=== PATIENT | female | born 1965 | race Caucasian/White ===

== ENCOUNTER 2020-05-03 16:20 | Inpatient (IN) ==
[2020-05-03] MEDS ORDERED: Morphine Sulfate 2 MG/ML SYRINGE IVP ONE (16:43)
[2020-05-03] MEDS ORDERED: Ondansetron 4 MG/2 ML VIAL IVP ONE (16:43)
[2020-05-03 17:18] LABS: Basophils % 0.5 %; Eosinophils # 0.1 K/mcL (0.0-0.6); Eosinophils % 1.6 %; Hematocrit 45.1 % (35.3-44.9); Hemoglobin 14.6 g/dL (11.5-15.4); Immature Granulocytes % 0.2 % (0-4); Lymphocytes # 2.3 K/mcL (0.6-4.6); Lymphocytes % 35.7 %; Mean Corpuscular HGB Conc 32.4 g/dL (31.6-35.5); Mean Corpuscular Hemoglobin 31.8 pg (28.0-33.3); Mean Corpuscular Volume 98.3 fL (83.0-100.0); Mean Platelet Volume 10.3 fL (9.4-12.4); Monocytes # 0.6 K/mcL (0.0-1.3); Neutrophils # 3.3 K/mcL (1.6-8.9); Platelet Count 227 K/mcL (140-400); Red Blood Count 4.59 M/mcL (3.82-4.97); Red Cell Distribution Width 12.4 % (11.5-14.5); White Blood Count 6.4 K/mcL (4.3-11.1)
[2020-05-03 17:29] LABS: Alanine Aminotransferase 16 Units/L (7-52); Albumin 3.9 g/dL (3.5-5.7); Albumin/Globulin Ratio 1.3 (1.1-2.2); Alkaline Phosphatase 79 Units/L (34-104); Aspartate Amino Transferase 17 Units/L (13-39); BUN/Creatinine Ratio 10 (6-26); Bilirubin,Direct 0.1 mg/dL (0.0-0.2); Bilirubin,Indirect 0.2 mg/dL (0.0-1.0); Bilirubin,Total 0.3 mg/dL (0.3-1.0); Blood Urea Nitrogen 11 mg/dL (6-20); Calcium 9.4 mg/dL (8.6-10.3); Carbon Dioxide 28 mEq/L (23-29); Chloride 104 mEq/L (98-107); Globulin 3.1 g/dL (2.4-3.5); Glucose 99 mg/dL (70-105); Lipase 20 Units/L (11-82); Osmolality,Calculated 287 (280-300); Potassium 3.9 mEq/L (3.5-5.1); Sodium 139 mEq/L (136-145); eGFR For African Americans > 60 (> 60); eGFR For Non-African Americans 54 (> 60)
[2020-05-03 18:20] LABS: Bilirubin,Urine Negative (Negative); Blood,Urine Negative (Negative); Clarity,Urine Clear (Clear); Color,Urine Colorless (Yellow); Glucose,Urine (UA) Normal (Normal); Ketones,Urine Negative (Negative); Leukocyte Esterase,Urine Negative (Negative); Nitrite,Urine Negative (Negative); PH,Urine 6.5 pH Units (5.0-8.0); Protein,Urine Negative (Neg-Trace); Specific Gravity,Urine 1.012 (1.010-1.025); Urobilinogen,Urine Normal (Normal)
[2020-05-03] MEDS ORDERED: 0.9 % Sodium Chloride 1,000 ML IVC ONE (18:30)
[2020-05-03] MEDS ORDERED: Piperacillin/Tazobactam 3.375 GM in 0.9 % Sodium Chloride Mini Bag 100 ML IVPB ONE (18:32)
[2020-05-03] MEDS ORDERED: *HR* HYDROmorphone (PF) 1 MG/ML SYRINGE IVP ONE (18:38)
[2020-05-03] MEDS ORDERED: Acetaminophen 325 MG TABLET PO PRN (20:23)
[2020-05-03] MEDS ORDERED: Naloxone 0.4 MG/ML INJ IVP PRN (20:23)
[2020-05-03] MEDS: 0.9 % Sodium Chloride 1,000 ML IVC SCH (23:52)
[2020-05-04] MEDS: Piperacillin/Tazobactam 3.375 GM in 0.9 % Sodium Chloride Mini Bag 100 ML IVPB SCH ×3 (00:19→17:44)
[2020-05-04 00:57] LABS: Basophils # 0.1 K/mcL (0.0-0.2); Basophils % 0.9 %; Eosinophils # 0.2 K/mcL (0.0-0.6); Eosinophils % 2.9 %; Hematocrit 43.4 % (35.3-44.9); Hemoglobin 14.5 g/dL (11.5-15.4); Immature Granulocytes % 0.1 % (0-4); Lymphocytes % 52.1 %; Mean Corpuscular HGB Conc 33.4 g/dL (31.6-35.5); Mean Corpuscular Hemoglobin 32.7 pg (28.0-33.3); Mean Corpuscular Volume 97.7 fL (83.0-100.0); Mean Platelet Volume 10.3 fL (9.4-12.4); Monocytes # 0.7 K/mcL (0.0-1.3); Monocytes % 8.7 %; Neutrophils # 2.7 K/mcL (1.6-8.9); Platelet Count 219 K/mcL (140-400); Red Blood Count 4.44 M/mcL (3.82-4.97); Red Cell Distribution Width 12.2 % (11.5-14.5); Segmented Neutrophils % 35.3 %; White Blood Count 7.6 K/mcL (4.3-11.1)
[2020-05-04 01:19] LABS: BUN/Creatinine Ratio 13 (6-26); Blood Urea Nitrogen 11 mg/dL (6-20); Carbon Dioxide 22 mEq/L (23-29); Chloride 109 mEq/L (98-107); Glucose 93 mg/dL (70-105); Osmolality,Calculated 285 (280-300); Phosphorous 3.8 mg/dL (2.7-4.5); Potassium 3.9 mEq/L (3.5-5.1); Sodium 138 mEq/L (136-145); eGFR For African Americans > 60 (> 60); eGFR For Non-African Americans > 60 (> 60)
[2020-05-04] MEDS: Levothyroxine Sodium 100 MCG VIAL IVP SCH (05:48)
[2020-05-04] MEDS: *HR* Heparin 5,000 UNIT/ML VIAL SQ SCH (05:48)
[2020-05-04] MEDS ORDERED: Nicotine 21 MG PATCH.TD24 TD ONE (08:15)
[2020-05-04] MEDS ORDERED: Lisdexamfetamine Dimesylate [Vyvanse] 70 MG PO SCH (09:00)
[2020-05-04] MEDS: Ondansetron 4 MG/2 ML VIAL IVP PRN ×3 (09:10→21:17)
[2020-05-04 09:42] LABS: Triglycerides 86 mg/dL (< 150)
[2020-05-04] MEDS ORDERED: *HR* Dextrose 50 % in Water (Vial) 50 ML VIAL IVP PRN (10:01)
[2020-05-04] MEDS ORDERED: D5% in Water 1,000 ML IVC PRN (10:01)
[2020-05-04] MEDS ORDERED: Dextrose Gel 15 GM/37.5 ML TUBE PO PRN ×2 (10:01)
[2020-05-04] MEDS ORDERED: Insulin LISPRO 300 UNITS/3 ML VIAL SQ SCH (10:15)
[2020-05-04] MEDS ORDERED: D10% in Water 500 ML IVC PRN (11:00)
[2020-05-04] MEDS ORDERED: Lidocaine -MPF 1% 5 ML AMPUL INFILT ONE (12:31)
[2020-05-04] MEDS: Insulin LISPRO 300 UNITS/3 ML VIAL SQ SCH ×3 (13:03→21:01)
[2020-05-04] MEDS: 0.9 % Sodium Chloride 1,000 ML IVC SCH (15:12)
[2020-05-04] MEDS ORDERED: Clinimix E 5%-15% SOLUTION 2,000 ML with MVI, adult with vitamin K 10 ML IVC SCH (17:00)
[2020-05-05] MEDS: Insulin LISPRO 300 UNITS/3 ML VIAL SQ SCH ×5 (00:29→20:01)
[2020-05-05] MEDS: Piperacillin/Tazobactam 3.375 GM in 0.9 % Sodium Chloride Mini Bag 100 ML IVPB SCH ×3 (00:32→20:12)
[2020-05-05] MEDS: Ondansetron 4 MG/2 ML VIAL IVP PRN ×3 (03:21→15:29)
[2020-05-05 06:04] LABS: Hematocrit 33.8 % (35.3-44.9); Platelet Count 173 K/mcL (140-400); Red Blood Count 3.39 M/mcL (3.82-4.97); Red Cell Distribution Width 12.4 % (11.5-14.5); Segmented Neutrophils % 41.5 %; White Blood Count 4.3 K/mcL (4.3-11.1)
[2020-05-05 06:05] LABS: Basophils % 0.7 %; Eosinophils # 0.1 K/mcL (0.0-0.6); Eosinophils % 3.2 %; Immature Granulocytes % 0.2 % (0-4); Lymphocytes % 45.6 %; Mean Corpuscular Volume 99.7 fL (83.0-100.0); Monocytes # 0.4 K/mcL (0.0-1.3); Monocytes % 8.8 %; Neutrophils # 1.8 K/mcL (1.6-8.9); Nucleated Red Blood Cells 0.5 /100 WBC (0)
[2020-05-05 06:06] LABS: Hemoglobin 11.5 g/dL (11.5-15.4); Mean Corpuscular Hemoglobin 33.9 pg (28.0-33.3)
[2020-05-05 06:07] LABS: BUN/Creatinine Ratio 15 (6-26); Blood Urea Nitrogen 11 mg/dL (6-20); Calcium 6.4 mg/dL (8.6-10.3); Carbon Dioxide 19 mEq/L (23-29); Chloride 107 mEq/L (98-107); Glucose 80 mg/dL (70-105); Magnesium 1.7 mg/dL (1.6-2.6); Osmolality,Calculated 276 (280-300); Potassium 3.5 mEq/L (3.5-5.1); Sodium 134 mEq/L (136-145); eGFR For African Americans > 60 (> 60); eGFR For Non-African Americans > 60 (> 60)
[2020-05-05] MEDS: Levothyroxine Sodium 100 MCG VIAL IVP SCH (06:12)
[2020-05-05] MEDS: Calcium Gluconate 1gm/50mL 1 GM/50 ML BAG IVPB SCH ×2 (08:48→10:04)
[2020-05-05] MEDS: Nicotine 21 MG PATCH.TD24 TD SCH (08:48)
[2020-05-05] MEDS ORDERED: Clinimix E 5%-15% SOLUTION 2,000 ML with MVI, adult with vitamin K 10 ML IVC SCH (17:00)
[2020-05-05] MEDS: *HR* Heparin 5,000 UNIT/ML VIAL SQ SCH (18:43)
[2020-05-06] MEDS: Piperacillin/Tazobactam 3.375 GM in 0.9 % Sodium Chloride Mini Bag 100 ML IVPB SCH ×3 (00:34→15:48)
[2020-05-06] MEDS: Ondansetron 4 MG/2 ML VIAL IVP PRN ×4 (00:36→19:32)
[2020-05-06] MEDS: Insulin LISPRO 300 UNITS/3 ML VIAL SQ SCH ×7 (01:23→20:22)
[2020-05-06 05:40] LABS: Basophils % 0.7 %; Eosinophils # 0.2 K/mcL (0.0-0.6); Eosinophils % 2.9 %; Immature Granulocytes % 0.2 % (0-4); Lymphocytes # 2.4 K/mcL (0.6-4.6); Lymphocytes % 39.2 %; Mean Corpuscular HGB Conc 32.6 g/dL (31.6-35.5); Mean Corpuscular Volume 98.2 fL (83.0-100.0); Mean Platelet Volume 10.6 fL (9.4-12.4); Monocytes # 0.7 K/mcL (0.0-1.3); Monocytes % 11.9 %; Neutrophils # 2.8 K/mcL (1.6-8.9); Platelet Count 183 K/mcL (140-400); Red Blood Count 4.38 M/mcL (3.82-4.97); Red Cell Distribution Width 12.2 % (11.5-14.5); Segmented Neutrophils % 45.1 %; White Blood Count 6.2 K/mcL (4.3-11.1)
[2020-05-06] MEDS: Levothyroxine Sodium 100 MCG VIAL IVP SCH (05:54)
[2020-05-06 05:55] LABS: BUN/Creatinine Ratio 14 (6-26); Blood Urea Nitrogen 14 mg/dL (6-20); Calcium 8.9 mg/dL (8.6-10.3); Carbon Dioxide 27 mEq/L (23-29); Chloride 108 mEq/L (98-107); Glucose 92 mg/dL (70-105); Magnesium 2.2 mg/dL (1.6-2.6); Osmolality,Calculated 290 (280-300); Phosphorous 4.6 mg/dL (2.7-4.5); Potassium 4.1 mEq/L (3.5-5.1); Sodium 140 mEq/L (136-145); eGFR For African Americans > 60 (> 60); eGFR For Non-African Americans 59 (> 60)
[2020-05-06] MEDS: Nicotine 21 MG PATCH.TD24 TD SCH (08:15)
[2020-05-06] MEDS: Gabapentin 100 MG CAPSULE PO SCH ×3 (11:58→20:30)
[2020-05-06] MEDS ORDERED: Clinimix E 5%-15% SOLUTION 2,000 ML with MVI, adult with vitamin K 10 ML IVC SCH (17:00)
[2020-05-07] MEDS: Insulin LISPRO 300 UNITS/3 ML VIAL SQ SCH ×6 (00:28→19:54)
[2020-05-07] MEDS: Piperacillin/Tazobactam 3.375 GM in 0.9 % Sodium Chloride Mini Bag 100 ML IVPB SCH ×3 (00:38→15:30)
[2020-05-07] MEDS: Ondansetron 4 MG/2 ML VIAL IVP PRN ×3 (01:37→18:16)
[2020-05-07 04:45] LABS: BUN/Creatinine Ratio 18 (6-26); Blood Urea Nitrogen 18 mg/dL (6-20); Calcium 8.9 mg/dL (8.6-10.3); Carbon Dioxide 29 mEq/L (23-29); Chloride 107 mEq/L (98-107); Glucose 95 mg/dL (70-105); Magnesium 2.2 mg/dL (1.6-2.6); Osmolality,Calculated 292 (280-300); Phosphorous 4.5 mg/dL (2.7-4.5); Sodium 140 mEq/L (136-145); eGFR For African Americans > 60 (> 60); eGFR For Non-African Americans 59 (> 60)
[2020-05-07] MEDS: Levothyroxine Sodium 100 MCG VIAL IVP SCH (06:41)
[2020-05-07] MEDS: Nicotine 21 MG PATCH.TD24 TD SCH (10:24)
[2020-05-07] MEDS: Gabapentin 300 MG CAPSULE PO SCH ×3 (10:45→21:54)
[2020-05-07 11:22] LABS: Basophils % 0.5 %; Eosinophils # 0.2 K/mcL (0.0-0.6); Eosinophils % 2.4 %; Hemoglobin 14.4 g/dL (11.5-15.4); Immature Granulocytes % 0.3 % (0-4); Lymphocytes % 31.2 %; Mean Corpuscular HGB Conc 32.7 g/dL (31.6-35.5); Mean Corpuscular Hemoglobin 31.8 pg (28.0-33.3); Mean Corpuscular Volume 97.1 fL (83.0-100.0); Mean Platelet Volume 11.1 fL (9.4-12.4); Monocytes # 0.6 K/mcL (0.0-1.3); Monocytes % 9.8 %; Neutrophils # 3.6 K/mcL (1.6-8.9); Platelet Count 201 K/mcL (140-400); Red Blood Count 4.53 M/mcL (3.82-4.97); Red Cell Distribution Width 12.3 % (11.5-14.5); Segmented Neutrophils % 55.8 %; White Blood Count 6.4 K/mcL (4.3-11.1)
[2020-05-07] MEDS ORDERED: Clinimix E 5%-15% SOLUTION 2,000 ML with MVI, adult with vitamin K 10 ML IVC SCH (17:00)
[2020-05-08] MEDS: Insulin LISPRO 300 UNITS/3 ML VIAL SQ SCH ×7 (00:15→23:55)
[2020-05-08] MEDS: Ondansetron 4 MG/2 ML VIAL IVP PRN ×4 (00:31→22:47)
[2020-05-08] MEDS: Piperacillin/Tazobactam 3.375 GM in 0.9 % Sodium Chloride Mini Bag 100 ML IVPB SCH ×3 (00:31→18:05)
[2020-05-08] MEDS: Levothyroxine Sodium 100 MCG VIAL IVP SCH (06:34)
[2020-05-08 07:32] LABS: Hematocrit 41.4 % (35.3-44.9); Hemoglobin 13.7 g/dL (11.5-15.4); Mean Corpuscular HGB Conc 33.1 g/dL (31.6-35.5); Mean Corpuscular Hemoglobin 32.5 pg (28.0-33.3); Mean Corpuscular Volume 98.1 fL (83.0-100.0); Mean Platelet Volume 10.8 fL (9.4-12.4); Platelet Count 175 K/mcL (140-400); Red Blood Count 4.22 M/mcL (3.82-4.97); Red Cell Distribution Width 12.3 % (11.5-14.5); White Blood Count 6.6 K/mcL (4.3-11.1)
[2020-05-08 07:52] LABS: BUN/Creatinine Ratio 22 (6-26); Blood Urea Nitrogen 19 mg/dL (6-20); Calcium 8.6 mg/dL (8.6-10.3); Carbon Dioxide 27 mEq/L (23-29); Chloride 108 mEq/L (98-107); Glucose 105 mg/dL (70-105); Magnesium 2.1 mg/dL (1.6-2.6); Osmolality,Calculated 291 (280-300); Phosphorous 3.6 mg/dL (2.7-4.5); Potassium 3.8 mEq/L (3.5-5.1); Sodium 139 mEq/L (136-145); eGFR For African Americans > 60 (> 60); eGFR For Non-African Americans > 60 (> 60)
[2020-05-08] MEDS: Nicotine 21 MG PATCH.TD24 TD SCH (08:00)
[2020-05-08] MEDS: Gabapentin 300 MG CAPSULE PO SCH ×3 (08:00→20:05)
[2020-05-08] MEDS ORDERED: Clinimix E 5%-15% SOLUTION 2,000 ML with MVI, adult with vitamin K 10 ML IVC SCH (17:00)
[2020-05-08] MEDS: Meropenem 1,000 MG in 0.9 % Sodium Chloride Mini Bag 100 ML IVPB SCH (23:52)
[2020-05-08] MEDS: MetroNIDAZOLE 500 MG/100 ML 500 MG/100 ML BAG IVPB SCH (23:52)
[2020-05-09] MEDS: Insulin LISPRO 300 UNITS/3 ML VIAL SQ SCH ×6 (04:25→23:49)
[2020-05-09] MEDS: Levothyroxine Sodium 100 MCG VIAL IVP SCH (05:35)
[2020-05-09] MEDS: MetroNIDAZOLE 500 MG/100 ML 500 MG/100 ML BAG IVPB SCH ×3 (05:36→18:03)
[2020-05-09 05:47] LABS: Hematocrit 41.3 % (35.3-44.9); Hemoglobin 13.4 g/dL (11.5-15.4); Mean Corpuscular HGB Conc 32.4 g/dL (31.6-35.5); Mean Corpuscular Hemoglobin 31.6 pg (28.0-33.3); Mean Corpuscular Volume 97.4 fL (83.0-100.0); Mean Platelet Volume 11.2 fL (9.4-12.4); Platelet Count 170 K/mcL (140-400); Red Blood Count 4.24 M/mcL (3.82-4.97); Red Cell Distribution Width 12.3 % (11.5-14.5); White Blood Count 5.5 K/mcL (4.3-11.1)
[2020-05-09 06:17] LABS: BUN/Creatinine Ratio 22 (6-26); Blood Urea Nitrogen 17 mg/dL (6-20); Calcium 8.7 mg/dL (8.6-10.3); Carbon Dioxide 26 mEq/L (23-29); Chloride 108 mEq/L (98-107); Glucose 87 mg/dL (70-105); Magnesium 2.1 mg/dL (1.6-2.6); Osmolality,Calculated 291 (280-300); Phosphorous 3.8 mg/dL (2.7-4.5); Sodium 140 mEq/L (136-145); eGFR For African Americans > 60 (> 60); eGFR For Non-African Americans > 60 (> 60)
[2020-05-09] MEDS: Meropenem 1,000 MG in 0.9 % Sodium Chloride Mini Bag 100 ML IVPB SCH ×2 (10:16→15:48)
[2020-05-09] MEDS: Ondansetron 4 MG/2 ML VIAL IVP PRN ×3 (10:17→21:40)
[2020-05-09] MEDS: Gabapentin 300 MG CAPSULE PO SCH ×3 (10:17→21:36)
[2020-05-09] MEDS: Nicotine 21 MG PATCH.TD24 TD SCH (10:17)
[2020-05-09] MEDS ORDERED: Clinimix E 5%-15% SOLUTION 2,000 ML with MVI, adult with vitamin K 10 ML IVC SCH (17:00)
[2020-05-10] MEDS: MetroNIDAZOLE 500 MG/100 ML 500 MG/100 ML BAG IVPB SCH ×4 (00:11→23:51)
[2020-05-10] MEDS: Meropenem 1,000 MG in 0.9 % Sodium Chloride Mini Bag 100 ML IVPB SCH ×4 (00:11→23:52)
[2020-05-10 04:08] LABS: Hematocrit 40.5 % (35.3-44.9); Hemoglobin 13.2 g/dL (11.5-15.4); Mean Corpuscular HGB Conc 32.6 g/dL (31.6-35.5); Mean Corpuscular Hemoglobin 31.8 pg (28.0-33.3); Mean Corpuscular Volume 97.6 fL (83.0-100.0); Mean Platelet Volume 11.5 fL (9.4-12.4); Platelet Count 160 K/mcL (140-400); Red Blood Count 4.15 M/mcL (3.82-4.97); Red Cell Distribution Width 12.3 % (11.5-14.5); White Blood Count 5.5 K/mcL (4.3-11.1)
[2020-05-10 04:30] LABS: BUN/Creatinine Ratio 18 (6-26); Blood Urea Nitrogen 14 mg/dL (6-20); Calcium 8.6 mg/dL (8.6-10.3); Carbon Dioxide 27 mEq/L (23-29); Chloride 111 mEq/L (98-107); Glucose 104 mg/dL (70-105); Magnesium 1.9 mg/dL (1.6-2.6); Osmolality,Calculated 293 (280-300); Potassium 3.7 mEq/L (3.5-5.1); Sodium 141 mEq/L (136-145); eGFR For African Americans > 60 (> 60); eGFR For Non-African Americans > 60 (> 60)
[2020-05-10] MEDS: Levothyroxine Sodium 100 MCG VIAL IVP SCH (05:47)
[2020-05-10] MEDS: Insulin LISPRO 300 UNITS/3 ML VIAL SQ SCH ×6 (07:03→23:57)
[2020-05-10] MEDS ORDERED: Lidocaine HCL 4 ML Topical Solution (Laryng-O-Jet Kit Sterile Pak) TP ONE (07:46)
[2020-05-10] MEDS ORDERED: 0.9 % Sodium Chloride 1,000 ML IVC ONE (07:48)
[2020-05-10] MEDS ORDERED: Lidocaine -MPF 2% 2 ML VIAL ONE (07:50)
[2020-05-10] MEDS ORDERED: Dexamethasone 4 MG/ML VIAL ONE (07:50)
[2020-05-10] MEDS ORDERED: *HR* FentaNYL (PF) 100 MCG/2 ML VIAL ONE ×2 (07:50→10:12)
[2020-05-10] MEDS ORDERED: *HR* Rocuronium Bromide 50 MG/5 ML VIAL ONE ×2 (07:50→10:10)
[2020-05-10] MEDS ORDERED: *HR* Succinylcholine 200 MG/10 ML VIAL IVP ONE (07:50)
[2020-05-10] MEDS ORDERED: Neostigmine Methylsulfate 3 MG/3 ML SYRINGE ONE (07:50)
[2020-05-10] MEDS ORDERED: Ondansetron 4 MG/2 ML VIAL ONE (07:50)
[2020-05-10] MEDS ORDERED: *HR* Midazolam HCl 2 MG/2 ML VIAL ONE (07:51)
[2020-05-10] MEDS ORDERED: *HR* Propofol 200 MG/20 ML VIAL IVP ONE (07:51)
[2020-05-10] MEDS: Gabapentin 300 MG CAPSULE PO SCH ×3 (07:56→21:12)
[2020-05-10] MEDS: Nicotine 21 MG PATCH.TD24 TD SCH (07:57)
[2020-05-10] MEDS ORDERED: Scopolamine Patch 1.5 MG PATCH.TD72 ONE (08:16)
[2020-05-10] MEDS ORDERED: Acetaminophen IV 1,000 MG/100 ML INFUS..BTL ONE (08:16)
[2020-05-10] MEDS ORDERED: Albuterol 2.5 MG/3 ML NEBULIZER IH PRN ×2 (08:34→12:37)
[2020-05-10] MEDS ORDERED: Ondansetron 4 MG/2 ML VIAL IVP ONE ×2 (08:34→12:37)
[2020-05-10] MEDS ORDERED: *HR* Promethazine 25 MG/ML VIAL IVP PRN ×2 (08:34→12:37)
[2020-05-10] MEDS ORDERED: *HR* PHENYLEPHRINE 1,000 MCG/10 ML SYRINGE IVP ONE (09:11)
[2020-05-10] MEDS ORDERED: *HR* HYDROMORPHONE 2 MG/ML VIAL ONE (11:16)
[2020-05-10] MEDS ORDERED: Ketorolac 30 MG/ML VIAL ONE (11:36)
[2020-05-10] MEDS: *HR* HYDROmorphone PF 0.5 MG/0.5 ML SYRINGE IVP PRN ×2 (11:55→12:20)
[2020-05-10] MEDS ORDERED: *HR* HYDROmorphone PF 0.5 MG/0.5 ML SYRINGE IVP PRN (12:37)
[2020-05-10] MEDS ORDERED: Acetaminophen 325 MG TABLET PO PRN (12:37)
[2020-05-10] MEDS ORDERED: Ondansetron 4 MG/2 ML VIAL IVP PRN (12:37)
[2020-05-10] MEDS ORDERED: D10% in Water 500 ML IVC PRN (12:37)
[2020-05-10] MEDS ORDERED: Clinimix E 5%-15% SOLUTION 2,000 ML with MVI, adult with vitamin K 10 ML IVC SCH ×3 (12:37→17:00)
[2020-05-10] MEDS ORDERED: Dextrose Gel 15 GM/37.5 ML TUBE PO PRN ×2 (12:37)
[2020-05-10] MEDS ORDERED: *HR* Dextrose 50 % in Water (Vial) 50 ML VIAL IVP PRN (12:37)
[2020-05-10] MEDS ORDERED: Naloxone 0.4 MG/ML INJ IVP PRN (12:37)
[2020-05-10] MEDS ORDERED: D5% in Water 1,000 ML IVC PRN (12:37)
[2020-05-11 04:29] LABS: Basophils % 0.2 %; Eosinophils % 0.1 %; Hemoglobin 12.1 g/dL (11.5-15.4); Immature Granulocytes % 0.2 % (0-4); Lymphocytes # 1.4 K/mcL (0.6-4.6); Lymphocytes % 13.6 %; Mean Corpuscular HGB Conc 33.6 g/dL (31.6-35.5); Mean Corpuscular Hemoglobin 32.5 pg (28.0-33.3); Mean Corpuscular Volume 96.8 fL (83.0-100.0); Mean Platelet Volume 11.5 fL (9.4-12.4); Monocytes # 1.2 K/mcL (0.0-1.3); Neutrophils # 7.4 K/mcL (1.6-8.9); Platelet Count 176 K/mcL (140-400); Red Blood Count 3.72 M/mcL (3.82-4.97); Red Cell Distribution Width 12.3 % (11.5-14.5); Segmented Neutrophils % 73.9 %
[2020-05-11 04:49] LABS: BUN/Creatinine Ratio 20 (6-26); Blood Urea Nitrogen 13 mg/dL (6-20); Calcium 8.3 mg/dL (8.6-10.3); Carbon Dioxide 26 mEq/L (23-29); Chloride 111 mEq/L (98-107); Glucose 97 mg/dL (70-105); Osmolality,Calculated 296 (280-300); Potassium 3.8 mEq/L (3.5-5.1); Sodium 143 mEq/L (136-145); eGFR For African Americans > 60 (> 60); eGFR For Non-African Americans > 60 (> 60)
[2020-05-11] MEDS: Insulin LISPRO 300 UNITS/3 ML VIAL SQ SCH ×5 (05:04→20:30)
[2020-05-11] MEDS: Levothyroxine Sodium 100 MCG VIAL IVP SCH (06:25)
[2020-05-11] MEDS: MetroNIDAZOLE 500 MG/100 ML 500 MG/100 ML BAG IVPB SCH (06:26)
[2020-05-11] MEDS ORDERED: Mag Hydrox/Al Hydrox/Simeth 30 ML UDC PO PRN (08:09)
[2020-05-11] MEDS ORDERED: Pantoprazole 40 MG VIAL IVP SCH (09:00)
[2020-05-11] MEDS: Nicotine 21 MG PATCH.TD24 TD SCH (09:41)
[2020-05-11] MEDS: Gabapentin 300 MG CAPSULE PO SCH ×3 (09:41→22:30)
[2020-05-11] MEDS: Piperacillin/Tazobactam 3.375 GM in 0.9 % Sodium Chloride Mini Bag 100 ML IVPB SCH ×2 (09:42→17:47)
[2020-05-11] MEDS: *HR* Heparin 5,000 UNIT/ML VIAL SQ SCH ×2 (13:29→22:30)
[2020-05-12] MEDS: Piperacillin/Tazobactam 3.375 GM in 0.9 % Sodium Chloride Mini Bag 100 ML IVPB SCH (00:31)
[2020-05-12 04:44] LABS: Basophils # 0.1 K/mcL (0.0-0.2); Basophils % 1.1 %; Eosinophils # 0.2 K/mcL (0.0-0.6); Eosinophils % 2.7 %; Hematocrit 34.7 % (35.3-44.9); Hemoglobin 11.2 g/dL (11.5-15.4); Immature Granulocytes % 0.2 % (0-4); Lymphocytes # 2.7 K/mcL (0.6-4.6); Lymphocytes % 33.1 %; Mean Corpuscular HGB Conc 32.3 g/dL (31.6-35.5); Mean Corpuscular Hemoglobin 31.9 pg (28.0-33.3); Mean Corpuscular Volume 98.9 fL (83.0-100.0); Monocytes # 0.8 K/mcL (0.0-1.3); Monocytes % 9.5 %; Neutrophils # 4.4 K/mcL (1.6-8.9); Platelet Count 150 K/mcL (140-400); Red Blood Count 3.51 M/mcL (3.82-4.97); Red Cell Distribution Width 12.7 % (11.5-14.5); Segmented Neutrophils % 53.4 %; White Blood Count 8.3 K/mcL (4.3-11.1)
[2020-05-12 05:00] LABS: BUN/Creatinine Ratio 17 (6-26); Blood Urea Nitrogen 14 mg/dL (6-20); Calcium 8.3 mg/dL (8.6-10.3); Carbon Dioxide 26 mEq/L (23-29); Chloride 108 mEq/L (98-107); Glucose 83 mg/dL (70-105); Magnesium 1.9 mg/dL (1.6-2.6); Osmolality,Calculated 292 (280-300); Phosphorous 2.9 mg/dL (2.7-4.5); Potassium 3.9 mEq/L (3.5-5.1); Sodium 141 mEq/L (136-145); eGFR For African Americans > 60 (> 60); eGFR For Non-African Americans > 60 (> 60)
[2020-05-12] MEDS: Levothyroxine Sodium 100 MCG VIAL IVP SCH (05:46)
[2020-05-12] MEDS: *HR* Heparin 5,000 UNIT/ML VIAL SQ SCH ×3 (05:46→21:17)
[2020-05-12] MEDS ORDERED: Ondansetron ODT 4 MG TAB.RAPDIS SL PRN (08:48)
[2020-05-12] MEDS ORDERED: Naloxone 0.4 MG/ML INJ IM PRN ×2 (08:57→09:00)
[2020-05-12] MEDS: Gabapentin 300 MG CAPSULE PO SCH ×3 (10:10→21:15)
[2020-05-12] MEDS: Nicotine 21 MG PATCH.TD24 TD SCH (10:10)
[2020-05-13 05:02] LABS: Basophils # 0.1 K/mcL (0.0-0.2); Basophils % 0.9 %; Eosinophils # 0.3 K/mcL (0.0-0.6); Hematocrit 37.6 % (35.3-44.9); Hemoglobin 12.1 g/dL (11.5-15.4); Immature Granulocytes % 0.3 % (0-4); Lymphocytes # 1.9 K/mcL (0.6-4.6); Lymphocytes % 29.4 %; Mean Corpuscular HGB Conc 32.2 g/dL (31.6-35.5); Mean Corpuscular Hemoglobin 32.1 pg (28.0-33.3); Mean Corpuscular Volume 99.7 fL (83.0-100.0); Mean Platelet Volume 11.6 fL (9.4-12.4); Monocytes # 0.7 K/mcL (0.0-1.3); Monocytes % 10.4 %; Neutrophils # 3.6 K/mcL (1.6-8.9); Platelet Count 170 K/mcL (140-400); Red Blood Count 3.77 M/mcL (3.82-4.97); Red Cell Distribution Width 12.6 % (11.5-14.5); White Blood Count 6.6 K/mcL (4.3-11.1)
[2020-05-13 05:21] LABS: BUN/Creatinine Ratio 19 (6-26); Blood Urea Nitrogen 13 mg/dL (6-20); Calcium 8.6 mg/dL (8.6-10.3); Carbon Dioxide 26 mEq/L (23-29); Chloride 108 mEq/L (98-107); Glucose 95 mg/dL (70-105); Osmolality,Calculated 288 (280-300); Sodium 139 mEq/L (136-145); eGFR For African Americans > 60 (> 60); eGFR For Non-African Americans > 60 (> 60)
[2020-05-13] MEDS: *HR* Heparin 5,000 UNIT/ML VIAL SQ SCH (06:05)
[2020-05-13 07:04] VITALS: BP 94/60
[2020-05-13] MEDS: Gabapentin 300 MG CAPSULE PO SCH ×2 (09:33→09:37)
[2020-05-13] MEDS: Nicotine 21 MG PATCH.TD24 TD SCH (09:33)
== END 2020-05-13 11:20 | disposition home or self-care (01) | DRG 330 ==
LOC: 3ANU 16:20 → EMEROOARM 16:20 → SUATTDRO 19:08 → 3ANU 19:53 → SUATTDRO 05-05 15:12 → 3ANU 05-09 08:57
PROVIDERS: ADMIT Internal Medicine; ATTEND Family Medicine

== ENCOUNTER 2022-03-19 19:51 | Observation (INO) ==
[2022-03-19] MEDS ORDERED: Iopamidol - 370 500 ML MLS IVP ONE (22:51)
[2022-03-19] MEDS ORDERED: Morphine Sulfate 2 MG/ML SYRINGE IVP ONE (23:07)
[2022-03-19 23:31] LABS: Basophils # 0.1 K/mcL (0.0-0.2); Basophils % 0.9 %; Eosinophils # 0.2 K/mcL (0.0-0.6); Eosinophils % 2.4 %; Hematocrit 46.8 % (35.3-44.9); Hemoglobin 15.5 g/dL (11.5-15.4); Immature Granulocytes % 0.3 % (0-4); Lymphocytes # 3.6 K/mcL (0.6-4.6); Lymphocytes % 44.9 %; Mean Corpuscular HGB Conc 33.1 g/dL (31.6-35.5); Mean Corpuscular Hemoglobin 32.2 pg (28.0-33.3); Mean Corpuscular Volume 97.3 fL (83.0-100.0); Mean Platelet Volume 10.6 fL (9.4-12.4); Monocytes # 0.8 K/mcL (0.0-1.3); Monocytes % 9.6 %; Neutrophils # 3.3 K/mcL (1.6-8.9); Platelet Count 228 K/mcL (140-400); Red Blood Count 4.81 M/mcL (3.82-4.97); Red Cell Distribution Width 12.7 % (11.5-14.5); Segmented Neutrophils % 41.9 %; White Blood Count 7.9 K/mcL (4.3-11.1)
[2022-03-19 23:33] LABS: Bilirubin,Urine Negative (Negative); Blood,Urine Negative (Negative); Clarity,Urine Clear (Clear); Color,Urine Colorless (Yellow); Glucose,Urine (UA) Normal (Normal); Ketones,Urine Negative (Negative); Leukocyte Esterase,Urine Negative (Negative); Nitrite,Urine Negative (Negative); Protein,Urine Negative (Neg-Trace); Specific Gravity,Urine 1.007 (1.010-1.025); Urobilinogen,Urine Normal (Normal)
[2022-03-20 00:16] LABS: Alanine Aminotransferase 23 Units/L (7-52); Albumin 4.2 g/dL (3.5-5.7); Albumin/Globulin Ratio 1.3 (1.1-2.2); Alkaline Phosphatase 78 Units/L (34-104); Aspartate Amino Transferase 25 Units/L (13-39); BUN/Creatinine Ratio 12 (6-26); Bilirubin,Indirect 0.5 mg/dL (0.0-1.0); Bilirubin,Total 0.5 mg/dL (0.3-1.0); Blood Urea Nitrogen 12 mg/dL (6-20); Calcium 9.2 mg/dL (8.6-10.3); Carbon Dioxide 26 mEq/L (23-29); Chloride 104 mEq/L (98-107); Globulin 3.3 g/dL (2.4-3.5); Glucose 93 mg/dL (70-105); Lipase 27 Units/L (11-82); Osmolality,Calculated 285 (280-300); Potassium 3.8 mEq/L (3.5-5.1); Sodium 138 mEq/L (136-145); Thyroid Stimulating Hormone 3.359 mcIU/mL (0.340-5.600); Total Protein 7.5 g/dL (6.4-8.9); Troponin I < 0.03 ng/mL (< 0.04); eGFR For African Americans > 60 (> 60); eGFR For Non-African Americans 56 (> 60)
[2022-03-20] MEDS ORDERED: Morphine Sulfate 2 MG/ML SYRINGE IVP ONE (02:40)
[2022-03-20] MEDS ORDERED: 0.9 % Sodium Chloride 1,000 ML IV ONE (03:03)
[2022-03-20] MEDS ORDERED: 0.9 % Sodium Chloride w KCl 20 MEQ/1,000 ML MLS IVC SCH (03:30)
[2022-03-20] MEDS ORDERED: Acetaminophen 325 MG TABLET PO PRN (03:30)
[2022-03-20] MEDS ORDERED: Naloxone 0.4 MG/ML INJ IVP PRN (03:30)
[2022-03-20] MEDS ORDERED: Ondansetron ODT 4 MG TAB.RAPDIS SL PRN (03:30)
[2022-03-20] MEDS ORDERED: Melatonin 3 MG TABLET PO PRN (03:30)
[2022-03-20] MEDS ORDERED: Perflutren Lipid Microsphere 1.3 ML in 0.9 % Sodium Chloride 8.7 ML IVP PRN (03:36)
[2022-03-20 05:15] LABS: Hematocrit 43.2 % (35.3-44.9); Hemoglobin 14.6 g/dL (11.5-15.4); Mean Corpuscular HGB Conc 33.8 g/dL (31.6-35.5); Mean Corpuscular Hemoglobin 32.4 pg (28.0-33.3); Mean Platelet Volume 11.7 fL (9.4-12.4); Platelet Count 145 K/mcL (140-400); Red Cell Distribution Width 12.7 % (11.5-14.5)
[2022-03-20 05:59] LABS: Adenovirus Not Detected (Not Detect); Bordetella Pertussis Not Detected (Not Detect); Chlamydophila pneumoniae Not Detected (Not Detect); Coronavirus 229E Not Detected (Not Detect); Coronavirus HKU1 Not Detected (Not Detect); Coronavirus NL63 Not Detected (Not Detect); Coronavirus OC43 Not Detected (Not Detect); Human Metapneumovirus Not Detected (Not Detect); Human Rhinovirus/Enterovirus Not Detected (Not Detect); Influenza A Subtype 2009 H1 Not Detected (Not Detect); Influenza B Not Detected (Not Detect); Mycoplasma pneumoniae Not Detected (Not Detect); Parainfluenza Virus 1 Not Detected (Not Detect); Parainfluenza Virus 2 Not Detected (Not Detect); Parainfluenza Virus 3 Not Detected (Not Detect); Parainfluenza Virus 4 Not Detected (Not Detect); Respiratory Syncytial Virus Not Detected (Not Detect); SARS-CoV-2 Not Detected (Not Detect)
[2022-03-20] MEDS: Nicotine 14 MG PATCH.TD24 TD SCH (08:38)
[2022-03-20 10:41] LABS: BUN/Creatinine Ratio 13 (6-26); Blood Urea Nitrogen 12 mg/dL (6-20); Calcium 8.7 mg/dL (8.6-10.3); Carbon Dioxide 26 mEq/L (23-29); Chloride 108 mEq/L (98-107); Chol/HDL Ratio 5.4 (0-4.9); Cholesterol 205 mg/dL (< 200); Glucose 88 mg/dL (70-105); HDL Cholesterol 38 mg/dL (40-59); LDL Cholesterol,Calculated 142 mg/dL (< 100); Magnesium 2.1 mg/dL (1.6-2.6); Osmolality,Calculated 285 (280-300); Phosphorous 3.7 mg/dL (2.7-4.5); Potassium 4.1 mEq/L (3.5-5.1); Sodium 138 mEq/L (136-145); Triglycerides 127 mg/dL (< 150); eGFR For African Americans > 60 (> 60); eGFR For Non-African Americans > 60 (> 60)
[2022-03-20] MEDS ORDERED: Piperacillin/Tazobactam 3.375 GM in 0.9 % Sodium Chloride Mini Bag 100 ML IVPB ONE (17:56)
[2022-03-20] MEDS ORDERED: Morphine Sulfate 2 MG/ML SYRINGE IVP PRN (17:58)
[2022-03-20] MEDS ORDERED: *HR* OxyCODONE/APAP 5/325 TABLET PO PRN (17:58)
[2022-03-20] MEDS ORDERED: Ketorolac 30 MG/ML VIAL IVP SCH (18:00)
[2022-03-20] MEDS: Vancomycin 1,250 MG/262.5 ML IV.SOLN IVPB SCH (19:56)
[2022-03-21] MEDS: Vancomycin 1,250 MG/262.5 ML IV.SOLN IVPB SCH ×2 (06:33→18:02)
[2022-03-21] MEDS: Nicotine 14 MG PATCH.TD24 TD SCH (09:00)
[2022-03-21] MEDS: Piperacillin/Tazobactam 3.375 GM in 0.9 % Sodium Chloride Mini Bag 100 ML IVPB SCH ×2 (09:00→17:11)
[2022-03-21 09:45] LABS: Basophils % 0.7 %; Eosinophils # 0.2 K/mcL (0.0-0.6); Eosinophils % 3.3 %; Hematocrit 40.9 % (35.3-44.9); Hemoglobin 13.4 g/dL (11.5-15.4); Immature Granulocytes % 0.3 % (0-4); Lymphocytes # 1.7 K/mcL (0.6-4.6); Lymphocytes % 27.3 %; Mean Corpuscular HGB Conc 32.8 g/dL (31.6-35.5); Mean Corpuscular Hemoglobin 32.1 pg (28.0-33.3); Mean Corpuscular Volume 97.8 fL (83.0-100.0); Mean Platelet Volume 10.9 fL (9.4-12.4); Monocytes # 0.3 K/mcL (0.0-1.3); Monocytes % 5.5 %; Neutrophils # 3.9 K/mcL (1.6-8.9); Platelet Count 179 K/mcL (140-400); Red Blood Count 4.18 M/mcL (3.82-4.97); Red Cell Distribution Width 12.5 % (11.5-14.5); Segmented Neutrophils % 62.9 %; White Blood Count 6.2 K/mcL (4.3-11.1)
[2022-03-21 10:07] LABS: Alanine Aminotransferase 19 Units/L (7-52); Albumin 3.5 g/dL (3.5-5.7); Albumin/Globulin Ratio 1.3 (1.1-2.2); Alkaline Phosphatase 67 Units/L (34-104); Aspartate Amino Transferase 16 Units/L (13-39); BUN/Creatinine Ratio 15 (6-26); Bilirubin,Total 0.4 mg/dL (0.3-1.0); Blood Urea Nitrogen 14 mg/dL (6-20); Calcium 8.6 mg/dL (8.6-10.3); Carbon Dioxide 26 mEq/L (23-29); Chloride 110 mEq/L (98-107); Globulin 2.7 g/dL (2.4-3.5); Glucose 147 mg/dL (70-105); Osmolality,Calculated 295 (280-300); Potassium 3.7 mEq/L (3.5-5.1); Sodium 141 mEq/L (136-145); Total Protein 6.2 g/dL (6.4-8.9); eGFR For African Americans > 60 (> 60); eGFR For Non-African Americans > 60 (> 60)
[2022-03-21 10:19] LABS: Thyroid Stimulating Hormone 2.218 mcIU/mL (0.340-5.600)
[2022-03-21] MEDS ORDERED: *HR* OxyCODONE/APAP 5/325 TABLET PO PRN (13:23)
[2022-03-22] MEDS: Piperacillin/Tazobactam 3.375 GM in 0.9 % Sodium Chloride Mini Bag 100 ML IVPB SCH ×2 (00:27→07:49)
[2022-03-22] MEDS: Vancomycin 1,250 MG/262.5 ML IV.SOLN IVPB SCH (05:58)
[2022-03-22 07:23] VITALS: BP 125/82; PULSE 78; TEMP 98.6; O2SAT 96
[2022-03-22] MEDS: Nicotine 14 MG PATCH.TD24 TD SCH (07:51)
[2022-03-22] MEDS ORDERED: Cholecalciferol (D-3) 1,000 UNIT (25MCG) TABLET PO SCH (10:30)
[2022-03-22] MEDS ORDERED: *HR* Heparin 5,000 UNIT/ML VIAL SQ SCH (14:00)
[2022-03-22] MEDS ORDERED: *HR* LORazepam 1 MG TABLET PO SCH (21:00)
== END 2022-03-22 13:04 | disposition home or self-care (01) ==
LOC: EMEROOARM 19:51 → 2NENU 19:51 → SUATTDRO 03-20 13:38 → 2NENU 03-20 13:54
PROVIDERS: ADMIT Internal Medicine; ATTEND Hospitalist